=== PATIENT | female | born 1975 | race Caucasian/White ===

== ENCOUNTER 2022-09-21 22:19 | Emergency (ER) | payer BC ==
[2022-09-21] MEDS ORDERED: Diphtheria,Pertussis(Acell),Tetanus Vaccine 0.5 ML Syringe IM ONE (22:45)
[2022-09-22] MEDS ORDERED: Amoxicillin/Clavulanate K 875-125 MG Tab PO ONE (00:41)
[2022-09-22 01:01] VITALS: BP 137/78; PULSE 80
== END 2022-09-22 01:30 | disposition home or self-care (01) ==
LOC: JD.ED 22:19
DX: S51.851A Open bite of right forearm, initial encounter (principal); Z23 Encounter for immunization; W54.0XXA Bitten by dog, initial encounter
CPT/HCPCS: 90471; 90715; 99283; A9270; 73090-26-RT